=== PATIENT | male | born 1965 | race Caucasian/White ===

== ENCOUNTER 2023-10-10 07:43 | Day surgery (SDC) | payer SELFPAY ==
[2023-10-10] MEDS ORDERED: Morphine 4 MG/ML VIAL ONE (08:52)
[2023-10-10] MEDS ORDERED: Ondansetron PF 4 MG/2 ML Vial ONE ×2 (08:52→11:30)
[2023-10-10] MEDS ORDERED: HYDROmorphone 0.5 MG/0.5 ML SYRINGE ONE (10:18)
[2023-10-10] MEDS ORDERED: Ketamine In 0.9 % NaCl 50 MG/5 ML SYRINGE ONE (10:19)
[2023-10-10] MEDS ORDERED: EPINEPHrine 1 MG/ML VIAL ONE (10:29)
[2023-10-10] MEDS ORDERED: Sodium Chloride 0.9% 100 ML ONE (10:30)
[2023-10-10] MEDS ORDERED: Bupivacaine PF 0.5% 30 ML VIAL ONE (10:30)
[2023-10-10] MEDS ORDERED: CEFAZOLIN 2 GM VIAL ONE (10:30)
[2023-10-10] MEDS ORDERED: Midazolam HCl 2 mg/2 ml Vial ONE (11:06)
[2023-10-10] MEDS ORDERED: Lidocaine 1% PF 5 ML VIAL ONE (11:11)
[2023-10-10] MEDS ORDERED: PROPOFOL 20 ML ONE (11:12)
[2023-10-10] MEDS ORDERED: fentaNYL 50 mcg/mL 1 mL Vial ONE ×3 (11:12→14:43)
[2023-10-10] MEDS ORDERED: Dexamethasone 4 mg/ml Vial ONE (11:30)
[2023-10-10] MEDS ORDERED: Ketorolac Tromethamine 30 MG (1 mL) VIAL ONE (11:43)
[2023-10-10] MEDS ORDERED: ePHEDrine Sulfate 50 MG/10 ML VIAL ONE (11:54)
[2023-10-10 13:57] LABS: ALT (SGPT) 27 U/L (8-55); AST (SGOT) 32 U/L (5-34); Alkaline Phosphatase 66 U/L (40-110); Anion Gap 17 mmol/L (10-20); BUN (Urea Nitrogen) 13 mg/dL (8.4-25.7); Bilirubin, Total 0.7 mg/dL (0.2-1.2); Calc. Creatinine Clearance 0 mL/min (70-130); Calcium 9.6 mg/dL (7.8-10.44); Carbon Dioxide 18 mmol/L (22-29); Chloride 112 mmol/L (98-107); Estimated GFR 77; Globulin 3.6 g/dL (2.4-3.5); Glucose 117 mg/dL (70-105); Potassium 4.8 mmol/L (3.5-5.1); Protein, Total 7.6 g/dL (6.0-8.3); Sodium 142 mmol/L (136-145)
[2023-10-10 13:58] LABS: #Basophils 0.03 10x3/uL (0.0-0.2); %Basophils 0.4 % (0.0-1.0); %Eosinophils 2.9 % (0.0-10.0); %Lymphocytes 13.7 % (21.0-51.0); %Monocytes 3.3 % (0.0-10.0); %Neutrophils 79.4 % (42.0-75.0); Hematocrit 49.6 % (42.0-52.0); Hemoglobin 16.6 g/dL (14.0-18.0); Mean Corpuscular HGB CONC 33.5 g/dL (32.0-36.0); Mean Corpuscular Hemoglobin 30.6 pg (27.0-31.0); Mean Corpuscular Volume 91.3 fL (78.0-98.0); Mean Platelet Volume 9.8 fL (7.4-10.4); Platelet Count 170 10x3/uL (130-400); RBC Distribution Width 12.4 % (11.5-14.5); Red Blood Cell (RBC) Count 5.43 mill/uL (4.70-6.10)
[2023-10-10] MEDS ORDERED: diphenhydrAMINE 50 MG/ML VIAL ONE (14:42)
== END 2023-10-10 17:32 | disposition home or self-care (01) ==
LOC: ERS 07:43 → SDC 10:15
PROVIDERS: ATTEND Student in an Organized Health Care Education/Training Program
PROC: 0SSL04Z Reposition Left Tarsometatarsal Joint with Internal Fixation Device, Open Approach (ICD-10-PCS; principal; 2023-10-10)
DX: S92.302A Fracture of unspecified metatarsal bone(s), left foot, initial encounter for closed fracture (principal); I10 Essential (primary) hypertension; X58.XXXA Exposure to other specified factors, initial encounter
CPT/HCPCS: 36415; 80053; 85025; C1713; J0171; J0665; J1100; J1170; J1200; J1885; J2250; J2272; J2405; J2704; J3010; J3490